=== PATIENT | female | born 1955 | race Two or more races ===

== ENCOUNTER 2017-01-16 14:32 | Emergency (ER) | payer MEDICAID, OTHER ==
[~2017-01-16 14:32] MED LIST: ASPI81CH39; METOPROLOL
== END 2017-01-16 15:18 | disposition left against medical advice (07) ==
LOC: ER 14:49
DX: R05 Cough (principal); Z53.21 Procedure and treatment not carried out due to patient leaving prior to being seen by health care provider

== ENCOUNTER 2017-01-16 16:47 | Emergency (ER) | payer MEDICAID, OTHER ==
[~2017-01-16] VITALS: Ht 157.5 cm; Wt 62.6 kg
[2017-01-16 18:39] VITALS: BP 157/90
== END 2017-01-16 19:28 | disposition home or self-care (01) ==
LOC: ER 16:56
DX: J40 Bronchitis, not specified as acute or chronic (principal); Z88.6 Allergy status to analgesic agent; Z88.1 Allergy status to other antibiotic agents
CPT/HCPCS: 71020